=== PATIENT | female | born 1960 | race Caucasian/White ===

== ENCOUNTER 2023-04-30 10:03 | Inpatient (IN) | payer MEDICARE, MEDICAID ==
[2023-04-30] VITALS (7 sets, daily range): BP systolic 78–129; BP diastolic 24–64
[~2023-04-30] VITALS: Ht 165.1 cm; Wt 77.8 kg
[2023-04-30] MEDS ORDERED: normal saline 1000ML IV soln IVB ONE (10:10)
[2023-04-30 10:45] LABS: BASOPHILS % (AUTO) 0.2 % (0-1); EOSINOPHILS # (AUTO) 0.2 X10'3 (0-0.9); EOSINOPHILS % (AUTO) 1.5 % (0-6); HEMATOCRIT 43.6 % (35.0-45.0); HEMOGLOBIN 14.2 g/dl (12.0-16.0); LYMPHOCYTES # (AUTO) 2.7 X10'3 (1.1-4.8); LYMPHOCYTES % (AUTO) 17.7 % (21-51); MEAN CORPUSCULAR HEMOGLOBIN 22.4 PG (27.0-31.0); MEAN CORPUSCULAR HGB CONC 32.5 g/dL (33.0-36.5); MEAN PLATELET VOLUME 8.6 FL (7.4-10.4); MONOCYTES % (AUTO) 6.8 % (2-12); NEUTROPHILS # (AUTO) 11.2 X10'3 (1.8-7.7); NEUTROPHILS % (AUTO) 73.8 % (42-75); PLATELET COUNT 184 X10'3 (140-440); RED BLOOD COUNT 6.32 X10'6 (4.20-5.60); RED CELL DISTRIBUTION WIDTH 28.1 % (11.5-14.5); WHITE BLOOD COUNT 15.2 X10'3 (4.5-11.0)
[2023-04-30] MEDS ORDERED: normal saline 500ml IV soln 500 ML IV ONE (10:55)
[2023-04-30 11:04] LABS: ALANINE AMINOTRANSFERASE 79 U/L (12-78); ALBUMIN 2.5 G/DL (3.4-5.0); ALBUMIN/GLOBULIN RATIO 0.7 (1.1-1.5); ALKALINE PHOSPHATASE 87 IU/L (46-116); ANION GAP 13 (8-16); ASPARTATE AMINO TRANSFERASE 40 U/L (10-37); BILIRUBIN,TOTAL 0.5 MG/DL (0.1-1.0); BLOOD UREA NITROGEN 140 MG/DL (7-18); BUN/CREATININE RATIO 89.2 (10.0-20.0); CALCIUM 8.8 MG/DL (8.5-10.1); CHLORIDE 99 MMOL/L (99-107); CREATININE 1.57 MG/DL (0.40-0.90); GLUCOSE 90 MG/DL (70-104); SODIUM 133 MMOL/L (135-145); TOTAL CARBON DIOXIDE 21.3 MMOL/L (24-32); eGFR 33 ML/MIN
[2023-04-30] MEDS ORDERED: piperacillin/tazo 3.375gm/50ml 50 ML IV ONE (11:05)
[2023-04-30 11:10] LABS: POTASSIUM 5.2 MMOL/L (3.5-5.1)
[2023-04-30] MEDS ORDERED: LidoCAINE 2% Topical Jelly 11mL syringe TOP ONE (11:10)
[2023-04-30] MEDS ORDERED: aspirin 81mg tab.chew PO ONE (11:25)
[2023-04-30] MEDS ORDERED: LIDOcaine 1% W/epiNEPHrine 1:100,000 20ml vial SQ ONE (11:40)
[2023-04-30 11:43] LABS: COLOR,URINE YELLOW (Yellow); GLUCOSE, URINE 250 mg/dl (Neg); KETONES,URINE NEGATIVE (Neg); LEUKOCYTE ESTERASE ,URINE SMALL (Neg); NITRITES, URINE NEGATIVE (Neg); OCCULT BLOOD,URINE NEGATIVE (Neg); PH,URINE 5.5 (4.8-8.0); PROTEIN,URINE NEGATIVE (Neg); UROBILINOGEN,URINE 0.2 E.U/dL (0.2-1.0)
[2023-04-30 11:44] LABS: CLARITY,URINE SLIGHTLY CLOUDY (Clear); UA COLLECTION TYPE FOLEY CATH
--- NOTE | 2023-04-30 11:49 | NUR ---
Kolton morgan placed on Pt. 35.4* via temp FC
[2023-04-30] MEDS ORDERED: heparin 25,000 UNIT/250ml bag 250 ML IV PRN ×2 (12:00→12:07)
[2023-04-30] MEDS ORDERED: normal saline 500ml IV soln 500 ML IV SCH (12:00)
[2023-04-30] MEDS ORDERED: heparin 10,000 units/1 ML INJ IV ONE (12:00)
[2023-04-30 12:03] LABS: SQUAMOUS EPITHELIAL CELL,UR FEW /LPF (FEW); TRANSITIONAL EPI CELLS,URINE FEW /HPF; WBC CLUMPS,URINE FEW /HPF (NEGATIVE)
[2023-04-30 12:04] LABS: BACTERIA,URINE 2+ /HPF (Neg); RBC,URINE 0-2 /HPF (0-2); WBC,URINE 20-30 /HPF (0-4)
[2023-04-30] MEDS ORDERED: methylPREDNISolone sod succ 125mg/2ml vial IV ONE (12:20)
[2023-04-30] MEDS ORDERED: normal saline 1000ml 1,000 ML IV ONE ×3 (12:50→17:40)
[2023-04-30] MEDS ORDERED: magnesium 4gm in 100ml NS 100 ML IV PRN (13:00)
[2023-04-30] MEDS ORDERED: diphenhydrAMINE 25mg capsule PO PRN (13:00)
[2023-04-30] MEDS ORDERED: normal saline 1000ml 1,000 ML IV SCH (13:00)
[2023-04-30] MEDS ORDERED: HYDROcodone/acetaminophen 5mg/325mg tablet PO PRN (13:00)
[2023-04-30] MEDS ORDERED: dextrose 50%-water 50ml dispensing syringe IV PRN ×4 (13:00→13:50)
[2023-04-30] MEDS ORDERED: HYDROcodone/acetaminophen 10/325mg tab PO PRN (13:00)
[2023-04-30] MEDS ORDERED: potassium Cl 20 mEq SR tablet PO PRN ×2 (13:00)
[2023-04-30] MEDS ORDERED: DEXTROSE 15 GM of carb/4 tabs (each vial/BOTTLE has 4 tablets) PO PRN ×4 (13:00→13:50)
[2023-04-30] MEDS ORDERED: insulin Lispro (HumaLOG) vial - multi-dose SQ SCH (13:00)
[2023-04-30] MEDS ORDERED: MESSAGE TO PHARMACY PO ONE ×2 (13:00→13:50)
[2023-04-30] MEDS ORDERED: acetaminophen 325mg tablet PO PRN ×3 (13:00→18:15)
[2023-04-30] MEDS ORDERED: glucagon, human recombinant 1mg kit SUBCUT PRN ×2 (13:00→13:50)
[2023-04-30] MEDS ORDERED: mag hydrox/Alum hydrox/simeth 30ml oral suspension PO PRN (13:00)
[2023-04-30] MEDS ORDERED: potassium Cl 40MEQ/1/2NS 520ml 520 ML IV PRN (13:00)
[2023-04-30] MEDS ORDERED: magnesium Cl slow-release 64mg tablet PO PRN (13:00)
[2023-04-30] MEDS ORDERED: bisacodyl 10mg suppository rectal RC PRN (13:00)
[2023-04-30] MEDS ORDERED: magnesium hydroxide 30ml (MOM) UD suspension PO PRN ×2 (13:00→18:15)
[2023-04-30] MEDS ORDERED: magnesium 2GM in 50ml NS 50 ML IV PRN (13:00)
[2023-04-30] MEDS ORDERED: ondansetron/PF 4mg/2ml inj IV PRN ×2 (13:00→18:15)
[2023-04-30 13:41] LABS: PLATELET ESTIMATE NORMAL; TOTAL CELLS COUNTED 100
[2023-04-30 13:42] LABS: ANISOCYTOSIS 3+; ELLIPTOCYTES 1+; HYPOCHROMASIA 1+; MICROCYTOSIS 2+; SCHISTOCYTES FEW
[2023-04-30 13:43] LABS: BURR CELLS FEW
[2023-04-30] MEDS ORDERED: ipratropium/albuterol 3ml nebule NEB PRN (13:55)
[2023-04-30] MEDS ORDERED: nitroGLYCERIN 0.4mg SUBLingual tab SL PRN (13:55)
[2023-04-30] MEDS ORDERED: metoprolol tartrate 1mg/ml inj IV PRN (13:55)
[2023-04-30] MEDS ORDERED: aminophylline 250mg/10ml inj. IV PRN (13:55)
[2023-04-30] MEDS ORDERED: regadenoson 0.4mg/5ml syringe IV PRN (13:55)
[2023-04-30] MEDS ORDERED: vancomycin 1,750 MG in NS 350ml IV soln IV ONE ×2 (13:56→17:00)
--- NOTE | 2023-04-30 14:43 | NUR ---
Spoke to Marquis Zaragoza r/t Pts sleep apnea. Pt states she 'I sleep w/ something at night but I don't know what it is called". Pt uses a CPAP at night accoding to [facility] ELIZALDE. Contreras is speaking w/ someone at the facility to see if the CPAP can be delivered to [facility].
--- NOTE | 2023-04-30 14:50 | NUR ---
Notified dietary r/t new meal order.
--- NOTE | 2023-04-30 15:38 | NUR ---
PTS BLOOD SUGAR IS 49 AFTER 2 ORANGE JUICES. PT NOT ABLE TO EAT GLUCOSE TABLETS. ON PUREE DIET. 1AMP D50 PUSHED AND WILL RECHECK FSBG - PT ALERT AND ANSWERING APPROPRIATE.
--- NOTE | 2023-04-30 16:22 | NUR ---
Spoke to pharmacy r/t Dionne not being delivere. Pharmacy states medication will be delivered.
[2023-04-30] MEDS ORDERED: VANCOMYCIN 750MG IV in NS 250 ML IV SCH (16:23)
--- NOTE | 2023-04-30 16:44 | NUR ---
Pharmacy still has not delivered medication. Pharmacy states they will bring it down.
[2023-04-30] MEDS ORDERED: DOPamine 400mg/D5W 250ml 250 ML IV SCH ×4 (17:25→17:50)
[2023-04-30] MEDS ORDERED: DOBUTamine-DoBUTrex 500mg/D5W 250 ML IV SCH (17:25)
[2023-04-30] MEDS ORDERED: ATOR40TA72 PO (17:36)
[2023-04-30] MEDS ORDERED: LISI40TA13 PO (17:36)
[2023-04-30] MEDS ORDERED: PRED20TA PO (17:36)
[2023-04-30] MEDS ORDERED: TORS20TA41 PO (17:59)
[2023-04-30] MEDS ORDERED: OMEP40CA21 PO (17:59)
[2023-04-30] MEDS ORDERED: POTA-366 PO (17:59)
[2023-04-30] MEDS ORDERED: EMPA25TA PO (17:59)
[2023-04-30] MEDS ORDERED: CARV6.2553 PO (17:59)
[2023-04-30] MEDS ORDERED: FLUT1BLS4 INH (17:59)
[2023-04-30] MEDS ORDERED: BENZ200C53 PO (17:59)
[2023-04-30] MEDS ORDERED: SULF-14 PO (17:59)
[2023-04-30] MEDS ORDERED: INSU100I31 SQ (17:59)
[2023-04-30] MEDS ORDERED: MYCO500T5 PO (17:59)
[2023-04-30] MEDS ORDERED: CHOL100040 PO (18:01)
[2023-04-30] MEDS ORDERED: ASCO500T28 PO (18:01)
[2023-04-30] MEDS ORDERED: MULT-1173 PO (18:01)
[2023-04-30] MEDS ORDERED: NORepinephrine 8mg/ 250ml NS 250 ML IV ONE (18:32)
[2023-04-30] MEDS ORDERED: albumin (human) 25% 100 ML IV solution IV ONE (18:35)
[2023-04-30] MEDS ORDERED: albumin (Human) 5% 250ml 250 ML IV ONE (18:35)
--- NOTE | 2023-04-30 18:36 | NUR ---
assumed care from shadow, rn
[2023-04-30] MEDS: NORepinephrine 8mg/ 250ml NS 250 ML IV SCH ×2 (18:42→23:24)
[2023-04-30] MEDS: normal saline 1000ml 1,000 ML IV SCH (18:47)
[2023-04-30] MEDS ORDERED: albumin (human) 25% 100ml IV 400 ML IV ONE (19:06)
[2023-04-30] MEDS: piperacillin/tazo 3.375gm/50ml 50 ML IV SCH (19:42)
[2023-04-30] MEDS: K and/or MAG REPLACEMENT MC SCH (20:00)
[2023-04-30] MEDS: heparin, porcine 5000 units/ml vial SQ SCH (20:04)
[2023-04-30] MEDS: albumin (Human) 5% 250ml 250 ML IV SCH ×2 (20:05→23:19)
[2023-04-30] MEDS: insulin Lispro (HumaLOG) vial - multi-dose SQ SCH (20:40)
[2023-04-30] MEDS: insulin glargine (Lantus) pen - multi-dose SQ SCH (20:40)
[2023-04-30] MEDS ORDERED: insulin glargine (Lantus) pen - multi-dose SQ SCH (21:00)
--- NOTE | 2023-04-30 22:40 | NUR ---
Tele rounds done with Dr. Garcia. Reviewed all care/therapies/labs/assessment. No changes in care tonight. Continue to titrate Levo as tolerated. Leave on NS and Albumin 5% rates. Hyperglycemic after being treated in ER , got Lantus given her HGB A1C is 10+. Wound photos in chart and consult is entered. On broad spectrum ABX, awaiting cultures to de-escalate.
[2023-05-01] VITALS (24 sets, daily range): BP systolic 90–125; BP diastolic 48–69
[2023-05-01] MEDS: normal saline 1000ml 1,000 ML IV SCH ×4 (00:55→20:55)
[2023-05-01 02:29] LABS: BASOPHILS % (AUTO) 0 % (0-1); EOSINOPHILS % (AUTO) 0.4 % (0-6); HEMOGLOBIN 9.9 g/dl (12.0-16.0); LYMPHOCYTES # (AUTO) 1.3 X10'3 (1.1-4.8); LYMPHOCYTES % (AUTO) 12.5 % (21-51); MEAN CORPUSCULAR HEMOGLOBIN 22.4 PG (27.0-31.0); MEAN CORPUSCULAR VOLUME 67.9 FL (78-98); MEAN PLATELET VOLUME 8.8 FL (7.4-10.4); MONOCYTES # (AUTO) 0.8 X10'3 (0-0.9); NEUTROPHILS # (AUTO) 8.1 X10'3 (1.8-7.7); NEUTROPHILS % (AUTO) 79.1 % (42-75); PLATELET COUNT 106 X10'3 (140-440); RED BLOOD COUNT 4.42 X10'6 (4.20-5.60); RED CELL DISTRIBUTION WIDTH 27.5 % (11.5-14.5); WHITE BLOOD COUNT 10.3 X10'3 (4.5-11.0)
[2023-05-01] MEDS: albumin (Human) 5% 250ml 250 ML IV SCH ×2 (02:58→05:15)
[2023-05-01 03:13] LABS: ABG BASE EXCESS -7.6 mmol/L (-2.0-2.0); ABG HCO3 17.1 mmol/L (22.0-26.0); ABG OXYGEN SATURATION 93.3 % (94-97); ABG PCO2 (T) 32.6 mmHg (32.0-45.0); ABG PO2 (T) 71.1 mmHg (75.0-100.0); ALLEN'S TEST Modified; FCOHb 0.3 % (0.0-3.9); FLOW 4 L/min; FMetHb 0.3 % (0.0-1.5); FO2Hb 92.7 % (94-97); PATIENT TEMPERATURE 37.5
[2023-05-01] MEDS: piperacillin/tazo 3.375gm/50ml 50 ML IV SCH ×3 (03:14→19:09)
[2023-05-01 03:30] LABS: ALANINE AMINOTRANSFERASE 122 U/L (12-78); ALBUMIN 3.9 G/DL (3.4-5.0); ALBUMIN/GLOBULIN RATIO 2.4 (1.1-1.5); ALKALINE PHOSPHATASE 166 IU/L (46-116); ANION GAP 12 (8-16); ASPARTATE AMINO TRANSFERASE 92 U/L (10-37); BLOOD UREA NITROGEN 71 MG/DL (7-18); BUN/CREATININE RATIO 73.2 (10.0-20.0); CALCIUM 7.7 MG/DL (8.5-10.1); CHLORIDE 112 MMOL/L (99-107); CREATININE 0.97 MG/DL (0.40-0.90); GLUCOSE 161 MG/DL (70-104); MAGNESIUM 1.9 MG/DL (1.5-2.4); PHOSPHORUS 2.8 MG/DL (2.3-4.5); POTASSIUM 4.5 MMOL/L (3.5-5.1); SODIUM 143 MMOL/L (135-145); TOTAL CARBON DIOXIDE 19.4 MMOL/L (24-32); TOTAL PROTEIN 5.5 G/DL (6.4-8.2); eGFR 58 ML/MIN
[2023-05-01] MEDS ORDERED: atorvastatin 10mg tablet PO ONE (03:40)
[2023-05-01] MEDS ORDERED: heparin 10,000 units/1 ML INJ IV PRN (03:40)
[2023-05-01] MEDS ORDERED: aspirin 325mg tablet PO ONE (03:40)
--- NOTE | 2023-05-01 03:47 | NUR ---
Dr. Garcia notified that pt was already on a heparin drip and it was DCd and already got ASA 325mg prior. Continue with his orders.
[2023-05-01] MEDS: heparin 25,000 UNIT/250ml bag 250 ML IV PRN ×2 (04:00→14:18)
[2023-05-01 04:04] LABS: APTT 33 SECONDS (22-32)
[2023-05-01] MEDS: atorvastatin 20mg tablet PO SCH ×2 (05:15→20:13)
[2023-05-01] MEDS: pantoprazole 40mg Tablet.DR PO SCH (07:36)
[2023-05-01] MEDS: vancomycin/NS 1 GM ADD-VANTAGE 250 ML IV SCH ×2 (07:51→20:10)
[2023-05-01] MEDS: heparin, porcine 5000 units/ml vial SQ SCH (07:55)
[2023-05-01] MEDS: K and/or MAG REPLACEMENT MC SCH ×2 (07:55→20:00)
[2023-05-01] MEDS ORDERED: fludrocortisone acetate 0.1mg tablet PO SCH (10:53)
[2023-05-01] MEDS ORDERED: benzonatate 100mg capsule PO PRN (11:00)
--- NOTE | 2023-05-01 11:19 | NUR ---
Troponin 4101, ptt >139, heparin drip held per protocol, Alcides CORDERO paged.
[2023-05-01] MEDS: NORepinephrine 8mg/ 250ml NS 250 ML IV SCH (11:31)
[2023-05-01] MEDS: multivitamins, therapeutics tablet PO SCH (11:34)
[2023-05-01] MEDS: hydrocortisone sod succ/PF 100mg/2ml inj. IV SCH ×3 (11:34→23:39)
[2023-05-01] MEDS: mycophenolate mofetil 250mg capsule PO SCH ×2 (11:35→20:11)
--- NOTE | 2023-05-01 14:47 | NUR ---
Malnutrition consult: Pt reports 2-13 lb wt loss with decreased appetite/PO intake per malnutrition risk screen with RN. Noted pt A/O x1 and confused on admit per EMR. Pt unavailable during attempted bedside visit however no visible fat or muscle wasting was appreciated. Pt currently on a renal CHO controlled diet and eating well, documented with 100% PO intake. Recommend removing renal diet restriction as electrolytes are now WNL. Pt with no documented significant decrease in muscle strength or edema. Pt currently lacks a minimum of two criteria for malnutrition though will continue to monitor s/s of malnutrition. Pt admit for hypotension, septic shock, DUSTIN, UTI, and NSTEMI. Per EMR pt with a coccyx wound. Wound care has been consulted, pending assessment at this time. Per EMR pt with T2DM, current A1c 10.7% though pt with hypoglycemia on admit with BG 48 mg/dL. Pt would benefit from DM education as able. Noted pt resides at [facility] per EMR so unsure if pt manages her diabetes herself. Per EMR pt with a low MCV 67.9, currently receiving routine MVI and Vitamin C. Per verbal d/w clinical pharmacist the MVI does have some Iron in it though pt would likely benefit from an additional iron supplement, will d/w . LBM 05/01, documented with diarrhea per EMR. Will continue to follow. Recommendations: 1) Continue CHO controlled diet; discontinue renal diet as electrolytes are WNL 2) Monitor need for ONS/additional protein 3) Continue routine Vitamin C, MVI, and Vitamin D3- consider adding routine Iron given low MCV 4) Bowel care PRN; consider probiotic/antidiarrheal if diarrhea persists 5) Daily scaled weights per rx 6) DM education as able; T2DM and A1c 10.7% though pt hypoglycemic on admit and per EMR pt resides at [facility], unsure of what level pt manages DM on her own Addendum: 05/01/23 at [address] Amended: Links added.
--- NOTE | 2023-05-01 15:13 | NUR ---
PRESSURE ULCER EDUCATION: DEFINITION: A pressure ulcer is an area of skin that breaks down when you stay in one position too long. The constant pressure against the skin reduces the blood flow to that area and the affected tissue dies. CAUSES: "Being bedridden or in a wheelchair "Fragile skin "Having a chronic condition, such as diabetes or vascular disease "Inability to move certain parts of your body without assistance "Older age "Incontinence of urine or stool SYMPTOMS: "A reddened area that DOES NOT turn white when pressed on - this can be the beginning of a pressure ulcer "A blister, deep sore or a crater - these can be advanced pressure ulcers FIRST AID: "Relieve the pressure on this area "Keep the area clean and dry "Call your primary doctor if you see any of the above symptoms "DO NOT massage the area "DO NOT use a donut shaped or ring shaped pillow- these actually interfere with the blood flow and cause complications PREVENTION: "Check for pressure ulcers everyday "Change position at least every two hours to relieve pressure "Use items that help relieve pressure- pillows, sheepskin, foam padding, and powders. "Keep skin clean and dry "Eat healthy well balanced meals "Exercise daily IF YOU SEE ANY OF THESE SYMPTOMS WHILE IN THE HOSPITAL - TELL YOUR NURSE IMMEDIATELY. IF YOU SEE ANY OF THESE SYMPTOMS WHILE AT HOME OR HAVE ANY QUESTIONS OR CONCERNS ABOUT PRESSURE ULCERS - CALL YOUR PRIMARY DOCTOR IMMEDIATELY. Addendum: 05/01/23 at 1513 by Bhaskar Carlisle RN Amended: Links added.
[2023-05-01] MEDS ORDERED: fludrocortisone acetate 0.1mg tablet PO ONE (16:41)
[2023-05-01] MEDS ORDERED: VANCOMYCIN 750MG IV in NS 250 ML IV SCH (17:00)
--- NOTE | 2023-05-01 18:21 | NUR ---
Problems reprioritized. Patient report given, questions answered & plan of care reviewed with Yinka GARDINER.
[2023-05-01] MEDS: insulin Lispro (HumaLOG) vial - multi-dose SQ SCH (20:59)
[2023-05-01] MEDS: insulin glargine (Lantus) pen - multi-dose SQ SCH (21:01)
--- NOTE | 2023-05-01 22:23 | NUR ---
Tele rounds done with Dr. Garcia. All care/therapies/labs/assessment reviewed. No change in care. Nutrition acceptable, getting back on track with hyperglycemia protocol. Goal for the night is to titrate norepi down as tolerated, practice good sleep hygiene so pt can rest to get strength back, continue monitoring heparin gtt.
[2023-05-02] VITALS (24 sets, daily range): BP systolic 80–138; BP diastolic 42–78
[2023-05-02] MEDS: piperacillin/tazo 3.375gm/50ml 50 ML IV SCH ×3 (02:11→19:18)
[2023-05-02] MEDS: normal saline 1000ml 1,000 ML IV SCH (02:11)
[2023-05-02 02:57] LABS: BASOPHILS % (AUTO) 0.3 % (0-1); EOSINOPHILS % (AUTO) 0.3 % (0-6); HEMATOCRIT 32.9 % (35.0-45.0); LYMPHOCYTES # (AUTO) 1.4 X10'3 (1.1-4.8); LYMPHOCYTES % (AUTO) 11.6 % (21-51); MEAN CORPUSCULAR HEMOGLOBIN 22.9 PG (27.0-31.0); MEAN CORPUSCULAR HGB CONC 33.4 g/dL (33.0-36.5); MEAN CORPUSCULAR VOLUME 68.6 FL (78-98); MEAN PLATELET VOLUME 8.8 FL (7.4-10.4); MONOCYTES # (AUTO) 0.5 X10'3 (0-0.9); MONOCYTES % (AUTO) 3.9 % (2-12); NEUTROPHILS # (AUTO) 10.3 X10'3 (1.8-7.7); NEUTROPHILS % (AUTO) 83.9 % (42-75); PLATELET COUNT 131 X10'3 (140-440); RED CELL DISTRIBUTION WIDTH 28.8 % (11.5-14.5); WHITE BLOOD COUNT 12.3 X10'3 (4.5-11.0)
[2023-05-02 03:04] LABS: GLUCOSE 132 MG/DL (70-104); POTASSIUM 3.8 MMOL/L (3.5-5.1); SODIUM 142 MMOL/L (135-145)
[2023-05-02 03:05] LABS: ALANINE AMINOTRANSFERASE 97 U/L (12-78); ALBUMIN 3.4 G/DL (3.4-5.0); ALBUMIN/GLOBULIN RATIO 1.8 (1.1-1.5); ALKALINE PHOSPHATASE 131 IU/L (46-116); ANION GAP 13 (8-16); ASPARTATE AMINO TRANSFERASE 52 U/L (10-37); BILIRUBIN,TOTAL 1.1 MG/DL (0.1-1.0); BLOOD UREA NITROGEN 34 MG/DL (7-18); BUN/CREATININE RATIO 41.5 (10.0-20.0); CALCIUM 7.9 MG/DL (8.5-10.1); CHLORIDE 111 MMOL/L (99-107); CREATININE 0.82 MG/DL (0.40-0.90); MAGNESIUM 1.6 MG/DL (1.5-2.4); PHOSPHORUS 1.9 MG/DL (2.3-4.5); TOTAL CARBON DIOXIDE 18.4 MMOL/L (24-32); TOTAL PROTEIN 5.3 G/DL (6.4-8.2); eGFR 70 ML/MIN
[2023-05-02 04:29] LABS: ANISOCYTOSIS 3+; MICROCYTOSIS 2+; PLATELET ESTIMATE DECREASED
[2023-05-02 04:34] LABS: ACANTHOCYTES FEW; ELLIPTOCYTES 1+; SCHISTOCYTES FEW
[2023-05-02] MEDS: NORepinephrine 8mg/ 250ml NS 250 ML IV SCH (04:57)
[2023-05-02] MEDS: K and/or MAG REPLACEMENT MC SCH ×2 (08:00→20:00)
[2023-05-02] MEDS: fludrocortisone acetate 0.1mg tablet PO SCH (08:05)
[2023-05-02] MEDS: atorvastatin 20mg tablet PO SCH ×2 (08:06→20:09)
[2023-05-02] MEDS: aspirin 81mg, enteric-coated 1 TAB TABLET.DR PO SCH (08:06)
[2023-05-02] MEDS: multivitamins, therapeutics tablet PO SCH (08:06)
[2023-05-02] MEDS: hydrocortisone sod succ/PF 100mg/2ml inj. IV SCH ×3 (08:06→23:52)
[2023-05-02] MEDS: pantoprazole 40mg Tablet.DR PO SCH (08:06)
[2023-05-02] MEDS: cholecalciferol (vitamin D3) 1,000 unit (25mcg) tablet PO SCH (08:07)
[2023-05-02] MEDS: mycophenolate mofetil 250mg capsule PO SCH ×2 (08:07→20:09)
[2023-05-02] MEDS: ascorbic acid 500mg tablet PO SCH (08:07)
[2023-05-02] MEDS: vancomycin/NS 1 GM ADD-VANTAGE 250 ML IV SCH ×2 (08:07→20:09)
[2023-05-02] MEDS: insulin Lispro (HumaLOG) vial - multi-dose SQ SCH ×3 (09:29→18:03)
[2023-05-02] MEDS: midodrine 5mg tablet PO SCH ×3 (09:33→23:33)
--- NOTE | 2023-05-02 18:10 | NUR ---
Problems reprioritized. Patient report given, questions answered & plan of care reviewed with Yinka GARDINER.
[2023-05-02] MEDS ORDERED: VANCOMYCIN LEVEL IV ONE (19:30)
[2023-05-02] MEDS: insulin glargine (Lantus) pen - multi-dose SQ SCH (20:59)
--- NOTE | 2023-05-02 21:07 | NUR ---
Vanco trough 23.5. Spoke with pharmacist RADHA, he said he'd put another level in prior to the next dose but that it was OK to let this dose for the night continue to finish.
--- NOTE | 2023-05-02 23:30 | NUR ---
Tele rounds done with Dr. Mckeon. Reviewed all care/therapies/labs/asssessments. No change in care overnight. Continue with plan to wean norepi as tolerated. Discussed pt's increasing FiO2 demand on HFNC when not on CPAP and her hx of pulmonary fibrosis, nothing to do for now besides avoiding anything that would further damage her lungs (fluid overload, etc.). Nutrition reviewed and blood sugar controlled on lvl 3 of hyperglycemia protocol.
[2023-05-03] VITALS (17 sets, daily range): BP systolic 90–123; BP diastolic 48–66
[2023-05-03 02:45] LABS: ALANINE AMINOTRANSFERASE 70 U/L (12-78); ALBUMIN 2.8 G/DL (3.4-5.0); ALBUMIN/GLOBULIN RATIO 1.3 (1.1-1.5); ALKALINE PHOSPHATASE 106 IU/L (46-116); ANION GAP 11 (8-16); ASPARTATE AMINO TRANSFERASE 33 U/L (10-37); BILIRUBIN,TOTAL 0.7 MG/DL (0.1-1.0); BLOOD UREA NITROGEN 31 MG/DL (7-18); BUN/CREATININE RATIO 42.5 (10.0-20.0); CALCIUM 8.1 MG/DL (8.5-10.1); CHLORIDE 110 MMOL/L (99-107); CREATININE 0.73 MG/DL (0.40-0.90); GLUCOSE 94 MG/DL (70-104); MAGNESIUM 1.6 MG/DL (1.5-2.4); PHOSPHORUS 1.9 MG/DL (2.3-4.5); POTASSIUM 3.5 MMOL/L (3.5-5.1); SODIUM 140 MMOL/L (135-145); TOTAL PROTEIN 4.9 G/DL (6.4-8.2); eGFR 81 ML/MIN
[2023-05-03 02:50] LABS: BASOPHILS % (AUTO) 0.4 % (0-1); EOSINOPHILS # (AUTO) 0.1 X10'3 (0-0.9); EOSINOPHILS % (AUTO) 0.8 % (0-6); HEMATOCRIT 31.6 % (35.0-45.0); HEMOGLOBIN 10.3 g/dl (12.0-16.0); LYMPHOCYTES # (AUTO) 1.8 X10'3 (1.1-4.8); LYMPHOCYTES % (AUTO) 15.5 % (21-51); MEAN CORPUSCULAR HEMOGLOBIN 22.3 PG (27.0-31.0); MEAN CORPUSCULAR HGB CONC 32.6 g/dL (33.0-36.5); MEAN CORPUSCULAR VOLUME 68.2 FL (78-98); MEAN PLATELET VOLUME 8.7 FL (7.4-10.4); MONOCYTES # (AUTO) 0.8 X10'3 (0-0.9); MONOCYTES % (AUTO) 6.7 % (2-12); NEUTROPHILS # (AUTO) 9.1 X10'3 (1.8-7.7); NEUTROPHILS % (AUTO) 76.6 % (42-75); PLATELET COUNT 117 X10'3 (140-440); RED BLOOD COUNT 4.64 X10'6 (4.20-5.60); RED CELL DISTRIBUTION WIDTH 29.4 % (11.5-14.5); WHITE BLOOD COUNT 11.8 X10'3 (4.5-11.0)
[2023-05-03] MEDS: piperacillin/tazo 3.375gm/50ml 50 ML IV SCH ×3 (03:07→19:24)
[2023-05-03] MEDS: NORepinephrine 8mg/ 250ml NS 250 ML IV SCH (05:17)
[2023-05-03 07:23] LABS: ANISOCYTOSIS 3+; BURR CELLS 2+; HYPOCHROMASIA 2+; MICROCYTOSIS 2+; PLATELET ESTIMATE DECREASED; TOTAL CELLS COUNTED 100
[2023-05-03 07:24] LABS: ACANTHOCYTES FEW; ELLIPTOCYTES 1+; POLYCHROMASIA FEW
[2023-05-03] MEDS ORDERED: VANCOMYCIN LEVEL IV ONE ×2 (07:30→16:30)
[2023-05-03] MEDS ORDERED: VANCOMYCIN 750MG IV in NS 250 ML IV SCH (08:00)
[2023-05-03] MEDS: atorvastatin 20mg tablet PO SCH ×2 (08:36→20:14)
[2023-05-03] MEDS: fludrocortisone acetate 0.1mg tablet PO SCH (08:36)
[2023-05-03] MEDS: cholecalciferol (vitamin D3) 1,000 unit (25mcg) tablet PO SCH (08:37)
[2023-05-03] MEDS: clopidogrel 75mg tablet PO SCH (08:37)
[2023-05-03] MEDS: midodrine 5mg tablet PO SCH ×3 (08:37→20:14)
[2023-05-03] MEDS: ascorbic acid 500mg tablet PO SCH (08:37)
[2023-05-03] MEDS: multivitamins, therapeutics tablet PO SCH (08:37)
[2023-05-03] MEDS: hydrocortisone sod succ/PF 100mg/2ml inj. IV SCH (08:38)
[2023-05-03] MEDS: fondaparinux 2.5 MG/0.5 ML syringe SUBCUT SCH (08:38)
[2023-05-03] MEDS: aspirin 81mg, enteric-coated 1 TAB TABLET.DR PO SCH (08:39)
[2023-05-03] MEDS: mycophenolate mofetil 250mg capsule PO SCH ×2 (08:39→20:14)
[2023-05-03] MEDS: pantoprazole 40mg Tablet.DR PO SCH (08:43)
[2023-05-03] MEDS: K and/or MAG REPLACEMENT MC SCH ×2 (08:52→19:53)
[2023-05-03 11:12] LABS: ABG BASE EXCESS -8.2 mmol/L (-2.0-2.0); ABG HCO3 15.3 mmol/L (22.0-26.0); ABG OXYGEN SATURATION 93.5 % (94-97); ABG PCO2 (T) 26.5 mmHg (32.0-45.0); ABG PO2 (T) 71.2 mmHg (75.0-100.0); ALLEN'S TEST POSITIVE; FCOHb 0.3 % (0.0-3.9); FMetHb 0.3 % (0.0-1.5); FO2Hb 92.9 % (94-97); PATIENT TEMPERATURE 37.5; RESPIRATORY RATE 10 b/min; TOTAL HEMOGLOBIN 11.1 G/dl (12.0-16.0)
[2023-05-03] MEDS: insulin Lispro (HumaLOG) vial - multi-dose SQ SCH ×3 (11:33→18:16)
--- NOTE | 2023-05-03 11:33 | NUR ---
1000- MD rounds, switch cpap to bipap then ABG, reported BGL of 71 this morning, ok to not cover carbs this am with humalog.
[2023-05-03] MEDS: methylPREDNISolone sod succ 125mg/2ml vial IV SCH ×2 (12:45→20:13)
[2023-05-03] MEDS: insulin glargine (Lantus) pen - multi-dose SQ SCH (20:32)
--- NOTE | 2023-05-03 21:00 | NUR ---
Placed pt back on BiPap for the night, she did not like the air "rushing at her face". Stated she would not be able to sleep with it on like that. Switched her back to CPAP so she can at least get the benefit of that.
[2023-05-04] VITALS (18 sets, daily range): BP systolic 93–132; BP diastolic 36–75
[2023-05-04] MEDS: NORepinephrine 8mg/ 250ml NS 250 ML IV SCH (00:24)
[2023-05-04 02:21] LABS: BASOPHILS % (AUTO) 0.2 % (0-1); EOSINOPHILS % (AUTO) 0.5 % (0-6); HEMATOCRIT 31.2 % (35.0-45.0); HEMOGLOBIN 10.3 g/dl (12.0-16.0); LYMPHOCYTES # (AUTO) 1.1 X10'3 (1.1-4.8); LYMPHOCYTES % (AUTO) 12.1 % (21-51); MEAN CORPUSCULAR HEMOGLOBIN 22.5 PG (27.0-31.0); MEAN CORPUSCULAR HGB CONC 32.9 g/dL (33.0-36.5); MEAN CORPUSCULAR VOLUME 68.4 FL (78-98); MEAN PLATELET VOLUME 8.3 FL (7.4-10.4); MONOCYTES # (AUTO) 0.2 X10'3 (0-0.9); MONOCYTES % (AUTO) 2.5 % (2-12); NEUTROPHILS # (AUTO) 7.5 X10'3 (1.8-7.7); NEUTROPHILS % (AUTO) 84.7 % (42-75); PLATELET COUNT 108 X10'3 (140-440); RED BLOOD COUNT 4.56 X10'6 (4.20-5.60); RED CELL DISTRIBUTION WIDTH 29.7 % (11.5-14.5); WHITE BLOOD COUNT 8.9 X10'3 (4.5-11.0)
[2023-05-04 02:31] LABS: ALANINE AMINOTRANSFERASE 62 U/L (12-78); ALBUMIN 2.7 G/DL (3.4-5.0); ALBUMIN/GLOBULIN RATIO 1.2 (1.1-1.5); ALKALINE PHOSPHATASE 95 IU/L (46-116); ANION GAP 12 (8-16); ASPARTATE AMINO TRANSFERASE 28 U/L (10-37); BILIRUBIN,TOTAL 0.7 MG/DL (0.1-1.0); BLOOD UREA NITROGEN 30 MG/DL (7-18); BUN/CREATININE RATIO 35.3 (10.0-20.0); CALCIUM 8.1 MG/DL (8.5-10.1); CHLORIDE 108 MMOL/L (99-107); CREATININE 0.85 MG/DL (0.40-0.90); GLUCOSE 145 MG/DL (70-104); MAGNESIUM 1.5 MG/DL (1.5-2.4); PHOSPHORUS 2.4 MG/DL (2.3-4.5); POTASSIUM 3.6 MMOL/L (3.5-5.1); SODIUM 139 MMOL/L (135-145); TOTAL CARBON DIOXIDE 18.6 MMOL/L (24-32); TOTAL PROTEIN 4.9 G/DL (6.4-8.2); eGFR 68 ML/MIN
[2023-05-04] MEDS: piperacillin/tazo 3.375gm/50ml 50 ML IV SCH ×3 (02:33→19:07)
[2023-05-04] MEDS: methylPREDNISolone sod succ 125mg/2ml vial IV SCH ×4 (02:33→20:11)
--- NOTE | 2023-05-04 02:50 | NUR ---
Tele rounds done with Dr. Mccann. Reviewed all care/therapies/labs/assessments. He will start to taper her steroids down or change her to her home prednisone dose. Other than that no real changes. Off vasopressors all day, on midodrine. FiO2 requirements going down a little. Discussed using CPAP over BiPap given pt's stated inability to tolerate BiPap. Nutrition and blood sugars acceptable. Reviewed wound care.
[2023-05-04] MEDS: fludrocortisone acetate 0.1mg tablet PO SCH (07:02)
[2023-05-04] MEDS: fondaparinux 2.5 MG/0.5 ML syringe SUBCUT SCH (07:02)
[2023-05-04] MEDS: cholecalciferol (vitamin D3) 1,000 unit (25mcg) tablet PO SCH (07:03)
[2023-05-04] MEDS: pantoprazole 40mg Tablet.DR PO SCH (07:03)
[2023-05-04] MEDS: clopidogrel 75mg tablet PO SCH (07:03)
[2023-05-04] MEDS: mycophenolate mofetil 250mg capsule PO SCH ×2 (07:03→20:11)
[2023-05-04] MEDS: multivitamins, therapeutics tablet PO SCH (07:03)
[2023-05-04] MEDS: atorvastatin 20mg tablet PO SCH (07:04)
[2023-05-04] MEDS: aspirin 81mg, enteric-coated 1 TAB TABLET.DR PO SCH (07:04)
[2023-05-04] MEDS: midodrine 5mg tablet PO SCH ×3 (07:04→21:00)
[2023-05-04] MEDS: ascorbic acid 500mg tablet PO SCH (07:04)
[2023-05-04] MEDS: K and/or MAG REPLACEMENT MC SCH ×2 (08:00→19:10)
[2023-05-04] MEDS: insulin Lispro (HumaLOG) vial - multi-dose SQ SCH ×3 (08:43→18:42)
[2023-05-04] MEDS ORDERED: carbamide peroxide 15ml bottle LEFT EAR PRN (10:30)
[2023-05-04] MEDS: carbamide peroxide 15ml bottle LEFT EAR SCH ×2 (10:52→20:10)
--- NOTE | 2023-05-04 11:19 | NUR ---
F/u 05/04: Per WOC note pt w/ unstageable PI to coccyx. Pt PO mostly 100% initial carb controlled/renal diet meeting kcal and partially meeting estimated protein needs given DX/wound. Pt [place] not fully A/O able to answer questions per RN. Pt seen by RD at bedside; pt able to answer some but not all questions is agreeable to malka perez BIDBD for wound healing-MD notified. RD d/w papeterie table assembler recommends removal of renal diet since Cr WNL and low Phos yesterday now WNL this AM- MD agreeable. LBM 05/03 continued liquid stool pending c.diff per MD. Will continue to follow. Recommendations: 1) Continue CHO controlled diet; discontinue renal diet as electrolytes/Cr are WNL-MD agreeable at rounds 05/04 2) malka perez BIDBD for wound healing; pending physician verification in EMR 3) Continue routine Vitamin C, MVI, and Vitamin D3- consider adding routine Iron given low MCV 4) Bowel care PRN; c.diff pending per MD 5) Daily scaled weights per rx 6) DM education as able; T2DM and A1c 10.7% though pt hypoglycemic on admit and per EMR pt resides at [facility], unsure of what level pt manages DM on her own Addendum: 05/04/23 at [address] Amended: Links added.
[2023-05-04] MEDS ORDERED: furosemide 40mg/4ml inj IV ONE (13:45)
[2023-05-04 14:26] LABS: C DIFF SPECIMEN=DIARRHEA? ACCEPTABLE; C DIFFICILE TOXINS A&B NEGATIVE (Neg)
[2023-05-04] MEDS ORDERED: JUVEN Smoothie Arginine/Glut./Ca2+Bmb (Juven 19.3pkt) 240ml cup PO SCH (17:30)
[2023-05-04] MEDS: diphenoxylate/atropine tablet (Lomotil) PO PRN (17:55)
--- NOTE | 2023-05-04 18:29 | NUR ---
Patient in room ICU 2039. I have received report from Stefan GARDINER and had the opportunity to ask questions and assume patient care.
[2023-05-04] MEDS ORDERED: VANCOMYCIN LEVEL IV ONE (19:30)
[2023-05-04] MEDS: insulin glargine (Lantus) pen - multi-dose SQ SCH (21:03)
[2023-05-05] VITALS (9 sets, daily range): BP systolic 92–125; BP diastolic 54–66
[2023-05-05] MEDS: methylPREDNISolone sod succ 125mg/2ml vial IV SCH ×3 (02:07→13:35)
[2023-05-05] MEDS: piperacillin/tazo 3.375gm/50ml 50 ML IV SCH ×2 (02:38→11:11)
[2023-05-05 06:17] LABS: BASOPHILS % (AUTO) 0.1 % (0-1); EOSINOPHILS % (AUTO) 0.1 % (0-6); HEMATOCRIT 33.7 % (35.0-45.0); HEMOGLOBIN 11.1 g/dl (12.0-16.0); LYMPHOCYTES # (AUTO) 1.1 X10'3 (1.1-4.8); LYMPHOCYTES % (AUTO) 12.7 % (21-51); MEAN CORPUSCULAR HEMOGLOBIN 22.6 PG (27.0-31.0); MEAN CORPUSCULAR HGB CONC 32.8 g/dL (33.0-36.5); MEAN CORPUSCULAR VOLUME 68.8 FL (78-98); MEAN PLATELET VOLUME 8.7 FL (7.4-10.4); MONOCYTES # (AUTO) 0.2 X10'3 (0-0.9); MONOCYTES % (AUTO) 2.7 % (2-12); NEUTROPHILS # (AUTO) 7.1 X10'3 (1.8-7.7); NEUTROPHILS % (AUTO) 84.4 % (42-75); PLATELET COUNT 129 X10'3 (140-440); RED BLOOD COUNT 4.91 X10'6 (4.20-5.60); RED CELL DISTRIBUTION WIDTH 29.1 % (11.5-14.5); WHITE BLOOD COUNT 8.5 X10'3 (4.5-11.0)
[2023-05-05 06:21] LABS: ALANINE AMINOTRANSFERASE 57 U/L (12-78); ALBUMIN 2.6 G/DL (3.4-5.0); ALKALINE PHOSPHATASE 87 IU/L (46-116); ANION GAP 11 (8-16); ASPARTATE AMINO TRANSFERASE 29 U/L (10-37); BILIRUBIN,TOTAL 0.7 MG/DL (0.1-1.0); BLOOD UREA NITROGEN 32 MG/DL (7-18); BUN/CREATININE RATIO 31.1 (10.0-20.0); CALCIUM 8.1 MG/DL (8.5-10.1); CHLORIDE 106 MMOL/L (99-107); CHOLESTEROL 121 MG/DL (0-200); CREATININE 1.03 MG/DL (0.40-0.90); GLUCOSE 196 MG/DL (70-104); HDL CHOLESTEROL 40 MG/DL (35-60); LDL CHOLESTEROL 59 MG/DL (50-100); PHOSPHORUS 3.2 MG/DL (2.3-4.5); POTASSIUM 3.3 MMOL/L (3.5-5.1); SODIUM 137 MMOL/L (135-145); TOTAL CARBON DIOXIDE 20.2 MMOL/L (24-32); TOTAL PROTEIN 5.1 G/DL (6.4-8.2); TRIGLYCERIDES 66 MG/DL (20-135); eGFR 54 ML/MIN
--- NOTE | 2023-05-05 06:25 | NUR ---
Problems reprioritized. Patient report given, questions answered & plan of care reviewed with Alejandra GARDINER.
[2023-05-05] MEDS: multivitamins, therapeutics tablet PO SCH (07:49)
[2023-05-05] MEDS: diphenoxylate/atropine tablet (Lomotil) PO PRN ×2 (07:49→13:35)
[2023-05-05] MEDS: ascorbic acid 500mg tablet PO SCH (07:49)
[2023-05-05] MEDS: clopidogrel 75mg tablet PO SCH (07:49)
[2023-05-05] MEDS: atorvastatin 20mg tablet PO SCH (07:50)
[2023-05-05] MEDS: midodrine 5mg tablet PO SCH ×2 (07:52→13:35)
[2023-05-05] MEDS: cholecalciferol (vitamin D3) 1,000 unit (25mcg) tablet PO SCH (07:52)
[2023-05-05] MEDS: pantoprazole 40mg Tablet.DR PO SCH (07:52)
[2023-05-05] MEDS: aspirin 81mg, enteric-coated 1 TAB TABLET.DR PO SCH (07:52)
[2023-05-05] MEDS: mycophenolate mofetil 250mg capsule PO SCH (07:52)
[2023-05-05] MEDS: fondaparinux 2.5 MG/0.5 ML syringe SUBCUT SCH (07:53)
[2023-05-05] MEDS: K and/or MAG REPLACEMENT MC SCH (08:00)
[2023-05-05] MEDS: insulin Lispro (HumaLOG) vial - multi-dose SQ SCH ×2 (09:18→13:45)
[2023-05-05] MEDS ORDERED: ESCITALOPRAM OXALATE 5 MG TABLET PO SCH (10:20)
[2023-05-05] MEDS ORDERED: furosemide 40mg/4ml inj IV SCH (10:20)
[2023-05-05] MEDS ORDERED: potassium Cl 20 mEq SR tablet PO PRN ×2 (10:40)
[2023-05-05] MEDS: carbamide peroxide 15ml bottle LEFT EAR SCH (11:10)
--- NOTE | 2023-05-05 11:20 | NUR ---
F/u: Noted physician approved removing renal diet restriction 05/04 however it remains active. D/w RN recommendation to discontinue renal diet as well as recommendation for routine Iron supplementation in view of low MCV. Will continue to follow and make recommendations as appropriate. Addendum: 05/05/23 at [address] Amended: Links added.
--- NOTE | 2023-05-05 15:07 | NUR ---
Patient transferred by [facility] to [facility]. Report called to Mindy RN assuming care of patient at [facility]. Patient send with one bag of belongings- pants, shirt, socks. 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
== END 2023-05-05 14:58 | DRG 871 ==
LOC: ER 10:04 → ED HOLD 13:19 → ICU 2S 19:12
PROVIDERS: ADMIT Internal Medicine; ATTEND Internal Medicine
PROC: 02HV33Z Insertion of Infusion Device into Superior Vena Cava, Percutaneous Approach (ICD-10-PCS; 2023-04-30)
PROC: 5A09357 Assistance with Respiratory Ventilation, Less than 24 Consecutive Hours, Continuous Positive Airway Pressure (ICD-10-PCS; principal; 2023-05-01)
PROC: 5A09357 Assistance with Respiratory Ventilation, Less than 24 Consecutive Hours, Continuous Positive Airway Pressure (ICD-10-PCS; 2023-05-02)
PROC: 5A0935A Assistance with Respiratory Ventilation, Less than 24 Consecutive Hours, High Flow/Velocity Cannula (ICD-10-PCS; 2023-05-02)
PROC: 5A09357 Assistance with Respiratory Ventilation, Less than 24 Consecutive Hours, Continuous Positive Airway Pressure (ICD-10-PCS; 2023-05-03)
PROC: 5A0935A Assistance with Respiratory Ventilation, Less than 24 Consecutive Hours, High Flow/Velocity Cannula (ICD-10-PCS; 2023-05-03)
PROC: 5A09357 Assistance with Respiratory Ventilation, Less than 24 Consecutive Hours, Continuous Positive Airway Pressure (ICD-10-PCS; 2023-05-04)
PROC: 5A0935A Assistance with Respiratory Ventilation, Less than 24 Consecutive Hours, High Flow/Velocity Cannula (ICD-10-PCS; 2023-05-04)
PROC: 5A0935A Assistance with Respiratory Ventilation, Less than 24 Consecutive Hours, High Flow/Velocity Cannula (ICD-10-PCS; 2023-05-05)
DX: A41.9 Sepsis, unspecified organism (principal); I21.A1 Myocardial infarction type 2; J96.21 Acute and chronic respiratory failure with hypoxia; R65.21 Severe sepsis with septic shock; J18.9 Pneumonia, unspecified organism; I42.9 Cardiomyopathy, unspecified; I50.32 Chronic diastolic (congestive) heart failure; N17.9 Acute kidney failure, unspecified; N39.0 Urinary tract infection, site not specified; E87.3 Alkalosis; J44.0 Chronic obstructive pulmonary disease with (acute) lower respiratory infection; I44.0 Atrioventricular block, first degree; I44.7 Left bundle-branch block, unspecified; I11.0 Hypertensive heart disease with heart failure; D63.8 Anemia in other chronic diseases classified elsewhere; E87.6 Hypokalemia; L89.152 Pressure ulcer of sacral region, stage 2; D69.59 Other secondary thrombocytopenia; R74.01 Elevation of levels of liver transaminase levels; E11.649 Type 2 diabetes mellitus with hypoglycemia without coma; E87.8 Other disorders of electrolyte and fluid balance, not elsewhere classified; G47.33 Obstructive sleep apnea (adult) (pediatric); E78.00 Pure hypercholesterolemia, unspecified; E86.0 Dehydration; J84.112 Idiopathic pulmonary fibrosis; Z79.82 Long term (current) use of aspirin; Z79.899 Other long term (current) drug therapy; Z87.891 Personal history of nicotine dependence; Z99.3 Dependence on wheelchair; Z99.81 Dependence on supplemental oxygen
CPT/HCPCS: 36415; 36600; 71045; 76770; 80053; 80061; 80202; 81001; 82803; 82948; 83036; 83605; 83735; 83880; 84100; 84145; 84484; 85007; 85008; 85018; 85025; 85610; 85730; 87040; 87077; 87081; 87088; 87186; 87324; 87449; 93005; 93306; 94660; 94760; 96365; 96375; 99215; 99285; A4333; A4615; A5200; A6196; A6212; A6213; A6258; A6402; A6449; C1758; G0378; J1644; J1652; J1720; J1815; J1940; J2543; J2930; J3370; J3490; J7030; J7040; J7050; J7517; P9045; P9047

== ENCOUNTER 2023-06-02 13:59 | Outpatient (CLI) | payer MEDICARE, MEDICAID ==
[~2023-06-02 13:59] MED LIST: ASCO500T28 PO; ATOR40TA72 PO; BENZ200C53 PO; CARV6.2553 PO; CHOL100040 PO; EMPA25TA PO; FLUT1BLS4 INH; INSU100I31 SQ; LISI40TA13 PO; MULT-1173 PO; MYCO500T5 PO; OMEP40CA21 PO; POTA-366 PO; PRED20TA PO; SULF-14 PO; TORS20TA41 PO
== END 2023-06-02 23:59 | disposition home or self-care (01) ==
LOC: CARD DIAG 13:59
PROVIDERS: ATTEND Internal Medicine
DX: I08.8 Other rheumatic multiple valve diseases (principal); I31.39 Other pericardial effusion (noninflammatory); R06.02 Shortness of breath
CPT/HCPCS: 93308